=== PATIENT | female | born 1960 | race Caucasian/White ===

== ENCOUNTER 2016-08-17 16:28 | Emergency (ER) | payer SELFPAY ==
[~2016-08-17] VITALS: Ht 167.6 cm; Wt 65.0 kg
[~2016-08-17 16:28] MED LIST: ADVA250A INH; ATEN1TAB74 PO; D32000CA PO; ESTR2TAB PO; LISI-360 PO; OMEP20CA5 PO; RANI300T PO; RED600TA PO; TRAM50TA PO; VALA1TAB PO; VENTAER INH; VITA100017 PO; VITA10004 PO
[2016-08-17 16:30] VITALS: BP 121/56; PULSE 66; RESP 20; TEMP 97.7; O2SAT 98
[2016-08-17] MEDS ORDERED: SODIUM CHLOR 0.9% 1000 ML INJ 1,000 ML IV SCH (21:19)
[2016-08-17] MEDS ORDERED: metroNIDAZOLE 500 MG INJ 100 ML IV ONE (21:30)
[2016-08-17] MEDS ORDERED: MORPHINE SULFATE 8 MG/ML INJ IV PUSH ONE (21:30)
[2016-08-17] MEDS ORDERED: CIPROFLOXACIN 400 MG PREMIX 200 ML IV ONE (21:30)
[2016-08-17] MEDS ORDERED: ONDANSETRON HCL 4 MG/2 ML VIAL IVP ONE (21:30)
[2016-08-17 21:59] LABS: AUTOMATED NEUTROPHIL # 6.6 TH/MM3 (1.8-7.7); BASOPHIL % 0.4 % (0.0-2.0); EOSINOPHIL # 0.3 TH/MM3 (0-0.4); EOSINOPHIL % 2.7 % (0.0-4.0); HEMATOCRIT 40.1 % (35.0-46.0); HEMO FLAGS DIFF FINAL; LYMPH % 21.1 % (9.0-44.0); LYMPHOCYTE # 2.2 TH/MM3 (1.0-4.8); MEAN CELL VOLUME 91.8 FL (80.0-100.0); MEAN CORPUSCULAR HEMOGLOBIN 30.7 PG (27.0-34.0); MEAN CORPUSCULAR HGB CONC 33.5 % (32.0-36.0); MONO % 11.3 % (0.0-8.0); NEUT % 64.5 % (16.0-70.0); PLATELET COUNT 318 TH/MM3 (150-450); RED BLOOD COUNT 4.37 MIL/MM3 (4.00-5.30); RED CELL DISTRIBUTION WIDTH 13.8 % (11.6-17.2); WHITE BLOOD COUNT 10.3 TH/MM3 (4.0-11.0)
[2016-08-17 22:01] LABS: BLOOD, URINE NEG (NEG); COMMENT (UR) CULT NOT INDICATED; CULTURE IF INDICATED CULT NOT INDICATED; GLUCOSE,URINE NEG (NEG); HYALINE CAST, URINE 2 /lpf (RARE); KETONE, URINE NEG (NEG); NITRITE,URINE NEG (NEG); SQUAMOUS EPITHELIAL CELL URINE 7 /hpf (0-5); URINE COLOR LIGHT-YELLOW (YELLW/STRAW)
[2016-08-17] MEDS: SODIUM CHLORIDE 0.9% FLUSH 10 ML FLUSH IV FLUSH PRN (22:11)
--- NOTE | 2016-08-17 22:27 | PD ---
HPI Chief Complaint: GI Complaint Time Seen by Provider: 21:10 Travel History International Travel<30 days: No Contact w/Intl Traveler<30days: No Traveled to known affect area: No History of Present Illness HPI 56-year-old female arrives complaining of pain in the left lower quadrant. The pain has been present for about 1 week. She has had no nausea vomiting or diarrhea. Bowel movements have been basically normal. She tried a clear liquid diet. Overall oral intake has been decreased however. She states it feels similar to prior episodes of diverticulitis. She has been drinking prune juice which she states has been helpful. PFSH Past Medical History Arthritis: Yes Asthma: Yes (as a child) Blood Disorders: No Anxiety: No Depression: No Heart Rhythm Problems: Yes (SVT) Cancer: No Cardiovascular Problems: Yes (HIGH HEART RATE) High Cholesterol: No Chemotherapy: No Chest Pain: No Congestive Heart Failure: No COPD: Yes Diabetes: No Endocrine: No Gastrointestinal Disorders: Yes (GERD. PANCREATITIS.) GERD: No Genitourinary: No Hepatitis: No Hiatal Hernia: No Hypertension: Yes Immune Disorder: Yes (FIBROMYALGIA) Musculoskeletal: Yes (OSTEROARTHRITIS IN BACK,NECK) Psychiatric: No Reproductive: No Respiratory: Yes (COPD) Myocardial Infarction: No Radiation Therapy: No Sleep Apnea: No Thyroid Disease: No Ulcer: No ?: Not LMP: 8 YEARS AGO Menopausal: Yes : 4 Para: 2 Miscarriage: 2 Past Surgical History Abdominal Surgery: Yes (LAPAROSCOPY FOR ECTOPIC ) AICD: No Appendectomy: No Cardiac Surgery: No Section: Yes Cholecystectomy: No Ear Surgery: No Endocrine Surgery: No Eye Surgery: No Genitourinary Surgery: Yes () Gynecologic Surgery: Yes (C SECTION, RIGHT OOPHERECTOMY) Hysterectomy: Yes Joint Replacement: No Oral Surgery: Yes (TONSILLECTOMY A CHILD) Pacemaker: No Thoracic Surgery: No Tonsillectomy: Yes Other Surgery: Yes (stent to bile duct ) Social History Alcohol Use: Yes (occassionally ) Tobacco Use: No Substance Use: No Allergies-Medications (Allergen,Severity, Reaction): Coded Allergies: Toradol (Verified Allergy, Severe, Rash, 08/17/16) DENIES THIS ALLERGY, IS CURRENTLY TAKING TORADOL FOR BACK PAIN Reported Meds & Prescriptions Reported Meds & Active Scripts Active Lortab (Hydrocodone-Acetaminophen) 5-325 Mg Tab 1-2 Tab PO Q6H PRN Flagyl (Metronidazole) 500 Mg Tab 500 Mg PO TID 10 Days Cipro (Ciprofloxacin HCl) 500 Mg Tab 500 Mg PO BID 10 Days Ranitidine 300 mg (Ranitidine HCl) 300 Mg Tab 1 Tab PO DAILY Estradiol 2 Mg Tab 4 Mg PO DAILY Tenormin (Atenolol) 50 Mg Tab 100 Mg PO DAILY Reported D3 (Cholecalciferol) 2,000 Unit Cap 2,000 Unit PO DAILY Vitamin B-12 Cr (Cyanocobalamin) 1 000 Tab 1 Tab PO Vitamin C (Ascorbic Acid) 1,000 Mg Tab 1,000 Mg PO DAILY Red Yeast Rice (Red Yeast Rice Extract) 600 Mg Tab 600 Mg PO Lisinopril 10 mg (Lisinopril) 10 Mg Tab 1 Tab PO DAILY Valacyclovir Hcl (Valacyclovir HCl) 1 Gm Tab 1 Gm PO DAILY Tramadol Hcl (Tramadol HCl) 50 Mg Tab 50 Mg PO Q6 PRN Ventolin Hfa (Albuterol Sulfate) 18 Gm Aero 2 Puff INH QIDPRN UNKNOWN DOSE Prilosec 20 mg (Omeprazole) 20 Mg Capcr 20 Mg PO EVERY OTHER DAY Advair Diskus 250/50 (Salmeterol Xinafoate/Fluticasone) 250 Mcg/50 Mcg Inhp 1 Puff INH BID Review of Systems Except as stated in HPI: all other systems reviewed are Neg General / Constitutional: Positive: Fever (subjective fever reported) Physical Exam Narrative GENERAL: 57 yo F, WNWD, mild distress SKIN: Warm and dry. HEAD: Atraumatic. Normocephalic. EYES: Pupils equal and round. No scleral icterus. No injection or drainage. ENT: No nasal bleeding or discharge. Mucous membranes pink and moist. NECK: Trachea midline. No JVD. CARDIOVASCULAR: Regular rate and rhythm. RESPIRATORY: No accessory muscle use. Clear to auscultation. Breath sounds equal bilaterally. GASTROINTESTINAL: Soft. TTP LLQ. No peritonitis. MUSCULOSKELETAL: Extremities without clubbing, cyanosis, or edema. No obvious deformities. NEUROLOGICAL: Awake and alert. No obvious cranial nerve deficits. Motor grossly within normal limits. Five out of 5 muscle strength in the arms and legs. Normal speech. PSYCHIATRIC: Appropriate mood and affect; insight and judgment normal. Data Data Last Documented VS Vital Signs Date Time Temp Pulse Resp B/P Pulse Ox O2 Delivery O2 Flow Rate FiO2 08/17/16 16:30 97.7 66 20 121/56 98 Room Air Orders Complete Blood Count With Diff (08/17/16 21:19) Comprehensive Metabolic Panel (08/17/16 21:19) Lipase (08/17/16 21:19) Urinalysis - C+S If Indicated (08/17/16 21:19) Iv Access Insert/Monitor (08/17/16 21:19) Ecg Monitoring (08/17/16 21:19) Oximetry (08/17/16 21:19) Ondansetron Inj (Zofran Inj) (08/17/16 21:30) Ciprofloxacin 400 Mg Premix (Cipro 400 M (08/17/16 21:30) Metronidazole 500 Mg Inj (Flagyl 500 Mg (08/17/16 21:30) Sodium Chlor 0.9% 1000 Ml Inj (Ns 1000 M (08/17/16 21:19) Sodium Chloride 0.9% Flush (Ns Flush) (08/17/16 21:30) Morphine Inj (Morphine Inj) (08/17/16 21:30) Blood Glucose (08/17/16 23:59) Sodium Chlor 0.9% 1000 Ml Inj (Ns 1000 M (08/18/16 00:00) Comprehensive Metabolic Panel (08/18/16 00:09) Lipase (08/18/16 00:12) Labs Laboratory Tests Test 08/17/16 08/17/16 08/17/16 08/18/16 21:40 21:48 23:17 00:12 White Blood Count 10.3 TH/MM3 Red Blood Count 4.37 MIL/MM3 Hemoglobin 13.4 GM/DL Hematocrit 40.1 % Mean Corpuscular Volume 91.8 FL Mean Corpuscular Hemoglobin 30.7 PG Mean Corpuscular Hemoglobin 33.5 % Concent Red Cell Distribution Width 13.8 % Platelet Count 318 TH/MM3 Mean Platelet Volume 8.3 FL Neutrophils (%) (Auto) 64.5 % Lymphocytes (%) (Auto) 21.1 % Monocytes (%) (Auto) 11.3 % Eosinophils (%) (Auto) 2.7 % Basophils (%) (Auto) 0.4 % Neutrophils # (Auto) 6.6 TH/MM3 Lymphocytes # (Auto) 2.2 TH/MM3 Monocytes # (Auto) 1.2 TH/MM3 Eosinophils # (Auto) 0.3 TH/MM3 Basophils # (Auto) 0.0 TH/MM3 CBC Comment DIFF FINAL Differential Comment Urine Color LIGHT-YELLOW Urine Turbidity HAZY Urine pH 5.0 Urine Specific [place] 1.010 Urine Protein NEG mg/dL Urine Glucose (UA) NEG mg/dL Urine Ketones NEG mg/dL Urine Occult Blood NEG Urine Nitrite NEG Urine Bilirubin NEG Urine Urobilinogen LESS THAN 2.0 MG/DL Urine Leukocyte Esterase NEG Urine RBC LESS THAN 1 /hpf Urine WBC 1 /hpf Urine Squamous Epithelial 7 /hpf Cells Urine Hyaline Casts 2 /lpf Microscopic Urinalysis Comment CULT NOT INDICATED Sodium Level 136 MEQ/L 140 MEQ/L Potassium Level 3.0 MEQ/L 4.2 MEQ/L Chloride Level 109 MEQ/L 107 MEQ/L Carbon Dioxide Level 18.3 MEQ/L 26.5 MEQ/L Anion Gap 9 MEQ/L 7 MEQ/L Blood Urea Nitrogen 13 MG/DL 16 MG/DL Creatinine 0.60 MG/DL 0.74 MG/DL Estimat Glomerular Filtration 104 ML/MIN 82 ML/MIN Rate Random Glucose 439 MG/DL 100 MG/DL Calcium Level 5.8 MG/DL 8.5 MG/DL Protein Corrected Calcium 7.1 MG/DL Total Bilirubin 0.2 MG/DL 0.3 MG/DL Aspartate Amino Transf 5 U/L 8 U/L (AST/SGOT) Alanine Aminotransferase 7 U/L 13 U/L (ALT/SGPT) Alkaline Phosphatase 37 U/L 57 U/L Total Protein 4.2 GM/DL 6.5 GM/DL Albumin 2.1 GM/DL 3.2 GM/DL Lipase 141 U/L 205 U/L [facility] Medical Decision Making Medical Screen Exam Complete: Yes Emergency Medical Condition: Yes Medical Record Reviewed: Yes Differential Diagnosis Constipation, Gastritis, Acute Cholecystitis, Biliary Colic, Pancreatitis, ESQUIVEL , Hepatitis, Bowel Obstruction, Cystitis, Mesenteric Ischemia, AAA, Appendicitis , Renal Stone/Hydronephrosis, GERD, perforated viscous Narrative Course CBC & BMP Diagram 08/17/16 21:40 08/17/16 23:17 08/18/16 00:12 Repeat LFTs are normal Most likely the first set was spurious. Patient has been comfortable throughout her ER stay. She has tramadol at home. Cipro Flagyl provided. Return precautions discussed. Diagnosis Primary Impression: Abdominal pain Qualified Code: R10.32 - Left lower quadrant pain Referrals: Primary Care Physician 2 days Additional Instructions: You have a choice when it comes to health care, and we are glad that you chose [facility]. Hopefully, we have met your expectations on today's visit. You are welcome to return to [facility] at any time, as we are committed to meeting the health care needs of our community. Med/Other Pt SpecificInfo: Prescription(s) given Scripts Hydrocodone-Acetaminophen (Lortab)5-325 Mg Tab1-2 Tab PO Q6H PRN (PAIN SCALE 6 TO 10) #10 TAB Ref 0 Prov:Pete Lucas MD 08/17/16 Metronidazole (Flagyl)500 Mg [id number] Mg PO TID 10 Days Ref 0 Prov:Pete Lucas MD 08/17/16 Ciprofloxacin (Cipro)500 Mg [id number] Mg PO BID 10 Days Ref 0 Prov:Pete Lucas MD 08/17/16 Disposition: 01 DISCHARGE HOME Condition: Stable Pete Lucas MD Aug 17, 2016 22:27
[2016-08-17] MEDS ORDERED: METR-1 PO (22:42)
[2016-08-17] MEDS ORDERED: CIPR-9 PO (22:42)
[2016-08-17] MEDS ORDERED: HYDR-3533 PO (22:43)
[2016-08-17 23:56] LABS: BICARBONATE 18.3 MEQ/L (21.0-32.0); TOTAL BILIRUBIN ADULT 0.2 MG/DL (0.2-1.0)
[2016-08-17 23:59] LABS: CALCIUM-PROTEIN CORRECTED 7.1 MG/DL (8.5-10.1)
[2016-08-18] MEDS ORDERED: SODIUM CHLOR 0.9% 1000 ML INJ 1,000 ML IV ONE
[2016-08-18] MEDS: SODIUM CHLORIDE 0.9% FLUSH 10 ML FLUSH IV FLUSH PRN (00:31)
[2016-08-18 00:48] LABS: ALKALINE PHOSPHATASE 57 U/L (45-117); ALT (GPT) 13 U/L (10-53); ANION GAP 7 MEQ/L (5-15); AST (GOT) 8 U/L (15-37); BICARBONATE 26.5 MEQ/L (21.0-32.0); BLOOD UREA NITROGEN 16 MG/DL (7-18); CHLORIDE 107 MEQ/L (98-107); GLOMERULAR FILTRATION RATE 82 ML/MIN (>89); POTASSIUM 4.2 MEQ/L (3.5-5.1); SODIUM (NA) 140 MEQ/L (136-145); TOTAL BILIRUBIN ADULT 0.3 MG/DL (0.2-1.0)
[2016-08-18] MEDS ORDERED: FLUT1INH INH (01:00)
[2016-08-18] MEDS ORDERED: ESTR2TAB PO (01:00)
[2016-08-18] MEDS ORDERED: ATEN100T PO (01:00)
[2016-08-18] MEDS ORDERED: VENTAER INH (01:00)
[2016-08-18] MEDS ORDERED: LISI10TA3 PO (01:00)
[2016-08-18] MEDS ORDERED: OMEP20CA2 (01:00)
[2016-08-18] MEDS ORDERED: TRAM50TA PO (01:00)
[2016-08-18 01:19] VITALS: BP 137/81
== END 2016-08-18 01:23 | disposition home or self-care (01) ==
LOC: NEPC 16:28
DX: R10.32 Left lower quadrant pain (principal)
CPT/HCPCS: 80053; 81001; 83690; 85025; 96361; 96365; 96367; 96375; 99284; J0744; J2270; J2405; J7030